=== PATIENT | female | born 2000 | race Caucasian/White ===

== ENCOUNTER 2020-11-28 20:40 | Emergency (ER) | payer MEDICAID ==
[~2020-11-28] VITALS: Ht 175.3 cm; Wt 77.0 kg
[2020-11-28 21:57] VITALS: BP 132/77
== END 2020-11-28 23:33 | disposition home or self-care (01) ==
LOC: ER 20:42
DX: U07.1 COVID-19 (principal); J02.9 Acute pharyngitis, unspecified; R51.9 Headache, unspecified; Z72.0 Tobacco use
CPT/HCPCS: 87635; 99283; C9803